=== PATIENT | male | born 1965 | race Caucasian/White ===

== ENCOUNTER 2023-05-09 19:21 | Emergency (ER) | payer SELFPAY ==
--- NOTE | 2023-05-09 19:29 | ED.SKABFB ---
HPI - Skin/Abscess/Foreign Bdy General Chief complaint: Skin/Abscess/Foreign Body Stated complaint: Skin Sore Source: patient and RN notes reviewed History of Present Illness HPI narrative: 58 yo M Presents to urgent care with complaints of a rash to his right upper cheek that he first noticed 2 days ago. Pt presents with an abrasion and redness to the right upper cheek. Pt denies any pain and states he thought he had a stye at first but knew it was lower than a typical stye. Pt denies any visual disturbance or eye drainage. Denies any fevers or chills. Related Data Home Medications Medication Instructions Recorded Confirmed amlodipine 5 mg tablet 5 mg PO DAILY 05/09/23 05/09/23 atorvastatin 40 mg tablet 40 mg PO HS 05/09/23 05/09/23 losartan 100 mg tablet 100 mg PO DAILY 05/09/23 05/09/23 Allergies Allergy/AdvReac Type Severity Reaction Status Date / Time Sulfa (Sulfonamide Allergy RO'S Verified 05/09/23 19:32 Antibiotics) SAMMI'S SYNDROMYN Review of Systems Review of Systems: CONSTITUTIONAL: Denies fever, chills, or sweats. EYES: Denies visual changes, redness, or discharge. ENT: Denies otalgia and sore throat CARDIOVASCULAR: Denies chest pain, palpitations, or edema. RESPIRATORY: Denies cough or dyspnea. GASTROINTESTINAL: Denies abdominal pain, nausea, vomiting, or diarrhea. GENITOURINARY: Denies dysuria or hematuria. SKIN: rash to right upper cheek MUSCULOSKELETAL: Denies back pain, joint pain, or myalgia. NEUROLOGIC: Denies headache, numbness, or weakness. Pertinent positives per HPI. PMFSH Comments At the time of my signature, I reviewed and agree with the nursing past medical, surgical, social, and family history. There is no relevant family history pertinent to the patient complaint. Exam Narrative: GENERAL: This is a well-nourished, well-developed patient, in no apparent distress. HEAD: normocephalic, atraumatic. EYES: Sclera clear/white. Vision is grossly intact. EARS: External ears normal, auditory canals clear and without drainage, TMs normal without perforation. Hearing grossly intact. NOSE: External nose normal with no obvious nasal discharge, nares without redness, no rhinorrhea. THROAT: Mucous membranes moist, posterior pharynx clear. NECK: Neck supple, non-tender without lymphadenopathy, masses or thyromegaly. CARDIOVASCULAR: Regular rate RESPIRATORY: No respiratory distress SKIN: Area of erythema and slight induration to right upper cheek, measuring approximately 4 cm x 2 cm. Small abrasion to middle of area. no fluctuance or drainage. Mild swelling to right lower orbit. NEURO: awake, alert, and oriented to person, place and time. There were no obvious focal neurologic abnormalities. Course Course Level of Care: Express Care Visit Vital Signs Vital signs: Vital Signs Temperature 98.0 F 05/09/23 19:32 Pulse Rate 58 L 05/09/23 19:32 Respiratory Rate 16 05/09/23 19:32 Blood Pressure 147/67 H 05/09/23 19:32 Pulse Oximetry 98 05/09/23 19:32 Oxygen Delivery Room Air 05/09/23 19:32 Temperature 98.0 F 05/09/23 19:32 Pulse Rate 58 L 05/09/23 19:32 Respiratory Rate 16 05/09/23 19:32 Blood Pressure 147/67 H 05/09/23 19:32 Pulse Oximetry 98 05/09/23 19:32 Oxygen Delivery Room Air 05/09/23 19:32 Reviewed MDM - Skin/Abscess/Foreign Bdy MDM Narrative Medical decision making narrative: Clean with soap and water only; Avoid using alcohol and peroxide. Elevate the affected area if possible Alternate Tylenol/ibuprofen for as needed for pain Acetaminophen(Tylenol) 650-1000mg every 4-6hours with max of 4000mg/day. Nonsteroidal anti-inflammatory agent (NSAIDs-ibuprofen): 400mg every 4-6hours with max 2400mg/day Take antibiotic until it's gone. Please schedule a follow up visit with your personal physician for further evaluation and treatment within 3-5days OR if your symptoms persist, change or worsen significantly before you can
[2023-05-09 19:32] VITALS: BP 147/67; PULSE 58; RESP 16; TEMP 36.7; O2SAT 98
== END 2023-05-09 19:38 | disposition home or self-care (01) ==
PROVIDERS: Emergency Provider Nurse Practitioner Family
DX: L03.211 Cellulitis of face (principal); E78.00 Pure hypercholesterolemia, unspecified; I10 Essential (primary) hypertension
CPT/HCPCS: 99213; G0463

== ENCOUNTER 2025-11-01 13:11 | Emergency (ER) | payer SELFPAY ==
[2025-11-01 13:26] VITALS: BP 148/79; PULSE 63; RESP 16; TEMP 36.4; O2SAT 100
--- NOTE | 2025-11-01 13:38 | ED.SKABFB ---
HPI - Skin/Abscess/Foreign Bdy General Chief complaint: Skin/Abscess/Foreign Body Stated complaint: redness on face patient presents to the [facility] with complaints of swelling, burning, and increased size and redness to an area on the right cheek upon waking today. Patient noted the area previously and was seen by freelance interpreter/translator yesterday and began using a sample of Eucrisa to the area and this significantly burned yesterday but upon waking had new symptoms. Noted he attempted to call the exchange line for the freelance interpreter/translator but has not gotten call back. Patient reports with the area, swelling, and redness was concerned and believed he may need antibiotics. Denies any vision changes, fever, chills, body aches, or drainage from the area. Related Data Home Medications ?Medication ?Instructions ?Recorded ?Confirmed ?Last Taken ?Type amlodipine 5 mg tablet 5 mg PO DAILY 05/09/23 05/09/23 Unknown History atorvastatin 40 mg tablet 40 mg PO HS 05/09/23 05/09/23 Unknown History losartan 100 mg tablet 100 mg PO DAILY 05/09/23 05/09/23 Unknown History testosterone 11/01/25 Unknown History Allergies Allergy/AdvReac Type Severity Reaction Status Date / Time Sulfa (Sulfonamide Allergy RO'S Verified 05/09/23 19:32 Antibiotics) SAMMI'S SYNDROMYN Review of Systems Constitutional: Constitutional: Reports as per HPI, Denies chills, Denies fatigue, Denies fever(s) and Denies weakness Eyes: Eyes: Reports as per HPI, Denies change in vision and Denies photophobia ENT: Reports system reviewed and no additional complaints, except as documented Cardiovascular: Cardiovascular: Reports no additional cardiovascular complaints Respiratory: Respiratory: Reports no additional respiratory complaints Gastrointestinal: Gastrointestinal: Reports no additional gastrointestinal complaints Genitourinary: Genitourinary: Reports no additional male genitourinary complaints Musculoskeletal: Musculoskeletal: Reports as per HPI, Denies myalgias, Denies arthralgias and Denies joint swelling Integumentary/Breasts: Skin/Breast: Reports as per HPI, Reports erythema and Denies rash Comments: Burning and swelling right cheek Neurologic: Denies numbness and Denies weakness Psychiatric: Psychiatric: Reports no additional psychiatric complaints Endocrine: Endocrine: Reports no additional endocrine complaints Hematologic/Lymphatic: Hematologic/Lymphatic: Reports no additional hematologic/lymphatic complaints Allergic/Immunologic: Allergic/Immunologic: Reports as per HPI, Denies lip swelling, Denies throat swelling and Denies tongue swelling Exam Const: General: healthy appearing and no acute distress Nutritional Appearance: well nourished Orientation/consciousness: patient oriented x3 Limitations: no limitations HENMT: Ears: external ears normal and TM's normal bilaterally Face/Nose/Sinus: Normal external nose present and Normal nares present Face and sinus: normal facial exam and sinuses nontender Mouth: Yes Normal oral and palatal mucosa present, Yes lip normal and Yes moist mucous membranes Throat: posterior oropharynx normal Eyes: Conjunctivae: conjunctivae normal Pupils: Equal, round and reactive pupils present EOM: EOMs intact bilaterally Direct Ophthalmoscopy: no photophobia Resp: Effort & Inspection: normal respiratory effort Auscultation: clear to auscultation bilaterally Cardio: Rate: regular rate Rhythm: regular rhythm Skin: General skin exam: normal color Other: circular area of diffuse erythema, warmth, and edema 3 cm in diameter with center pustule. Tenderness with palpation. no active drainage or crusting noted. Neuro: General: patient oriented x3 and moves all extremities Cranial nerves: Yes Nystagmus not present Speech: normal speech Gait exam (Neuro): Normal gait present Psych: Mental Status: mental status grossly normal Affect: normal affect Attitude: cooperative Course Course Level of Care: Express Care Visit Vital Signs Vital signs: Vital Signs Temperature 97.5 F L 11/01/25 13:26 Pulse Rate 63 11/01/25 13:26 Respiratory Rate 16 11/01/25 13:26 Blood Pressure 148/79 H 11/01/25 13:26 Pulse Oximetry 100 11/01/25 13:26 Temperature 97.5 F L 11/01/25 13:26 Pulse Rate 63 11/01/25 13:26 Respiratory Rate 16 11/01/25 13:26 Blood Pressure 148/79 H 11/01/25 13:26 Pulse Oximetry 100 11/01/25 13:26 [facility] Narrative Medical decision making narrative: appears to be a bite versus cellulitis of some kind pustule in the center of the area. Stop cream from freelance interpreter/translator and will turn to warm compresses and oral antibiotics The patient was evaluated by myself in the express care. History is obtained from patient who is an independent historian and physical exam was performed. Available medical records were reviewed at this time. Exam findings show no acute concerns or changes; patient is non-toxic appearing and is in no distress. Patient is appropriate for outpatient treatment and follow-up. I have evaluated and discussed social determinants of health with the patient that could potentially impact subsequent diagnosis and treatment plans. Differential diagnosis and treatment plan were discussed with the patient. Patient agrees with discussion and after shared medical decision making agrees with plan of care. All questions were answered to the patient's satisfaction. Differential Diagnosis Differential Diagnosis: cellulitis, insect bite, shingles, eczema, contact dermatitis Medical Records I have reviewed the following patient records and this information was taken into consideration when formulating the assessment and plan.: previous labs, previous ER visits, previous hospitalizations and previous clinic visits Discharge Plan Discharge Clinical Impression: Cellulitis of face Patient Disposition: Home Condition: Stable Instructions: Antibiotic Form, Cellulitis (ED) Additional Instructions: Clean with soap and water only; Avoid using alcohol and peroxide. Elevate the affected area if possible Alternate Tylenol/ibuprofen for as needed for pain Acetaminophen(Tylenol) 650-1000mg every 4-6hours with max of 4000mg/day. Nonsteroidal anti-inflammatory agent (NSAIDs-ibuprofen): 400mg every 4-6hours with max 2400mg/day Take antibiotic until it's gone. Please schedule a follow up visit with your personal physician for further evaluation and treatment within 3-5days OR if your symptoms persist, change or worsen significantly before you can contact your personal physician then please, without delay, go to the emergency department for further evaluation. Patient Language: Luxembourgish Prescriptions: New doxycycline monohydrate 100 mg capsule 100 mg PO BID Qty: 20 0RF No Action atorvastatin 40 mg tablet 40 mg PO HS amlodipine 5 mg tablet 5 mg PO DAILY losartan 100 mg tablet 100 mg PO DAILY testosterone 20.25 mg/1.25 gram (1.62 %) gel in metered-dose pump Follow-up/Referrals: PHYSICIAN NOT ON STAFF,NONSTAFF [Primary Care Provider] Time of Disposition: 13:40
== END 2025-11-01 13:45 | disposition home or self-care (01) ==
PROVIDERS: Emergency Provider Nurse Practitioner Family
DX: L03.211 Cellulitis of face (principal)
CPT/HCPCS: 99213; G0463